=== PATIENT | female | born 1965 | race Caucasian/White ===

== ENCOUNTER → 2017-10-12 | Emergency (ER) | payer OTHER ==
[~2017-10-12] VITALS: Ht 167.6 cm; Wt 95.3 kg
[~2017-10-12] MED LIST: LOSARTAN POTAS100 MG PO
== END | disposition home or self-care (01) ==
LOC: ER 17:56
DX: I10 Essential (primary) hypertension (principal); M62.838 Other muscle spasm; M54.2 Cervicalgia